=== PATIENT | male | born 1960 | race African-American/Black ===

== ENCOUNTER → 2024-05-14 11:06 | Outpatient (REF) | payer OTHER, SELFPAY ==
[2024-05-14 16:27] LABS: Mumps Virus IgG Positive; Varicella Zoster IgG (VZV) Positive
[2024-05-14 18:06] LABS: Hepatitis B Surface Antibody Negative
[2024-05-14 18:57] LABS: Rubella Positive
[2024-05-15 12:20] LABS: Rubeola (Measles) IgG Positive
== END ==
LOC: OHS 11:06
PROVIDERS: ATTENDING PHYSICIAN Nurse Practitioner Family
DX: Z23 Encounter for immunization (principal)
CPT/HCPCS: 36415; 86480; 86706; 86735; 86762; 86765; 86787